=== PATIENT | female | born 1995 | race Caucasian/White ===

== ENCOUNTER 2019-02-05 09:59 | Inpatient (IN) | payer MEDICAID ==
[~2019-02-05] VITALS: Ht 157.5 cm; Wt 73.0 kg
[2019-02-05 10:11] VITALS: Ht 157.5 cm; Wt 73.0 kg
[2019-02-05 10:12] VITALS: BP 114/71; PULSE 90; RESP 18
[2019-02-05] MEDS ORDERED: PREN1TAB13 PO (10:16)
[2019-02-05] MEDS ORDERED: IBUPROFEN 600 MG TAB PO PRN (11:00)
[2019-02-05] MEDS ORDERED: CARBOPROST 250 MCG INJ IM PRN (11:00)
[2019-02-05] MEDS ORDERED: OXYTOCIN 30 UNITS/LR 500 ML IV SCH ×3 (11:00→14:30)
[2019-02-05] MEDS ORDERED: LIDOCAINE 1% (MPF) 30 ML INJ INJ PRN (11:00)
[2019-02-05] MEDS ORDERED: BUTORPHANOL 1 MG INJ IV PRN (11:00)
[2019-02-05] MEDS ORDERED: MISOPROSTOL 200 MCG TAB PR PRN (11:00)
[2019-02-05] MEDS ORDERED: BUTORPHANOL 2 MG INJ IV PRN (11:00)
[2019-02-05] MEDS ORDERED: METHYLERGONOVINE 0.2 MG INJ IM PRN (11:00)
[2019-02-05] MEDS ORDERED: OXYTOCIN 30 UNITS/LR 500 ML IV PRN (11:00)
[2019-02-05] MEDS: LACTATED RINGER'S 1,000 ML IV SCH ×2 (11:49→15:39)
--- NOTE | 2019-02-05 14:21 | HP ---
Date/Time of Note Date/Time of Note DATE: 02/05/19 TIME: 14:19 OB - History Hx of Present Chief Complaint: contraction Estimated Due Date: Feb 06, 2019 : 1 Para: 0 Spontaneous : 0 Therapeutic : 0 Care: Good Care Ultrasounds: Normal mid trimester US Obstetrical Complications: None Medical Complications: None Past Family/Social History * Past Medical, Surgical, Family and Obstetric Histories reviewed from chart. GBS Status: Negative OB Admission Exam Vital Signs Vital Signs Vital Signs Date Temp Pulse Resp B/P (MAP) Pulse Ox O2 O2 Flow FiO2 Time Delivery Rate 02/05/19 98.4 90 18 114/71 Room Air 10:12 (85) Physical Exam HEENT: WNL Heart: Rhythm Normal Lungs: Clear, Equal Abdomen: WNL Extremities: Normal Reflexes: Normal Cervical Dilatation: 2cm Effacement: 75% Station: -2 Membranes: Intact Heart Rate: 120's Accelerations: Accelerations Present Decelerations: No Decelerations Varibility: Moderate Last 72 hours Lab Results CBC & BMP 02/05/19 11:45 OB Assessment/Plan Reason for admission: other Other Assessment: Early labor Plan: Other Induction Method: per Pitocin Protocol Other plan: Augment labor JALYN MOSQUERA MD Feb 05, 2019 14:21
--- NOTE | 2019-02-06 01:25 | PREAC ---
Date/Time of Note Date/Time of Note DATE: 02/06/19 TIME: : Anesthesia Eval and Record Evaluation Time Pre-Procedure Interview DATE: 02/06/19 TIME: : Age 23 Sex female NPO: 8 hrs Preoperative diagnosis labpr pain Planned procedure epidural Past Medical History Past Medical History: None Surgery & Anesthesia Issues No known issue Meds Anticoagulation: Yes Beta Rebeca within 24 hr: Yes Reason Beta Rebeca not given: Pt. not on B-Rebeca Reported Medications Pnv95/Ferrous Fumarate/FA ( Vitamins Tablet) 1 Each Tablet, 1 EACH PO, TAB 02/05/19 Current Medications Lactated Ringer's 1,000 ml @ 125 mls/hr Q8H IV Last administered on 02/05/19at 15:39; Admin Dose 125 MLS/HR; Start 02/05/19 at 10:59 Butorphanol Tartrate (Stadol) 1 mg Q2H PRN IV .PAIN; Start 02/05/19 at 11:00 Butorphanol Tartrate (Stadol) 2 mg Q2H PRN IV .PAIN; Start 02/05/19 at 11:00 Lidocaine (Xylocaine 1% (Mpf)) 30 ml ONCE PRN INJ .EPISIOTOMY; Start 02/05/19 at 11:00 Oxytocin/Lactated Ringer's 500 ml @ 500 mls/hr ONCE POST IV ; Start 02/05/19 at 11:00 Oxytocin/Lactated Ringer's 500 ml @ 125 mls/hr POST IV ; Start 02/05/19 at 11:00 Ibuprofen (Motrin) 600 mg ONCE PRN PO .PAIN 1-5; Start 02/05/19 at 11:00 Oxytocin/Lactated Ringer's 500 ml @ 0 mls/hr ONCE PRN IV .VAGINAL BLEEDING; Start 02/05/19 at 11:00 Methylergonovine Maleate (Methergine) 0.2 mg ONCE PRN IM .VAGINAL BLEEDING; Start 02/05/19 at 11:00 Carboprost Tromethamine (Hemabate) 250 mcg ONCE PRN IM .VAGINAL BLEEDING; Start 02/05/19 at 11:00 Misoprostol (Cytotec) 1,000 mcg ONCE PRN VT .VAGINAL BLEEDING; Start 02/05/19 at 11:00 Oxytocin/Lactated Ringer's 500 ml @ 0 mls/hr FOR INDUCTION IV Last administered on 02/05/19at 14:40; Admin Dose 1 MLS/HR; Start 02/05/19 at 14:30 Meds reviewed: Yes Allergies Coded Allergies: No Known Allergy (Unverified , 02/05/19) Allergies Reviewed: Yes Labs/Studies Labs Reviewed: Reviewed by anesthesiologist Result Diagram: 02/05/19 1145 Laboratory Tests 02/05/19 11:45 Blood Bank Test 02/05/19 11:45 Antibody Screen NEGATIVE Blood Type O POSITIVE Rh Immune Globulin Candidate NO test: Positive Studies: ECG (n/a), CXR (n/a) Pre-procedure Exam Last vitals Vital Signs Date Temp Pulse Resp B/P (MAP) Pulse Ox O2 O2 Flow FiO2 Time Delivery Rate 02/05/19 98.4 90 18 114/71 Room Air 10:12 (85) Airway: Adequate mouth opening Mallampati: Mallampati I Teeth: Normal Lung: Normal Heart: Normal ASA Physical Status ASA physical status: 2 Emergency: None Planned Anesthetic Neuraxial: Epidural Pre-operative Attestations Prior to commencing anesthesia and surgery, the patient was re-evaluated, there was verification of: *The patient's identity *The results of appropriate recent lab work and preoperative vital signs *The above evaluation not changing prior to induction *Anesthetic plan, risk benefits, alternative and complications discussed with patient/family; questions answered; patient/family understands, accepts and wishes to proceed. YAHAIRA WHALEN MD Feb 06, 2019 01:25
[2019-02-06] MEDS ORDERED: FENTAnyl 2MCG/ML-ROPIV 0.2% 100 ML BAG EPI SCH (01:30)
[2019-02-06] MEDS ORDERED: NALOXONE (0.4 MG/ML) INJ IV PRN (01:30)
[2019-02-06] MEDS ORDERED: FENTAnyl 2MCG/ML-ROPIV 0.2% 100 ML ONE (01:44)
[2019-02-06] MEDS: LACTATED RINGER'S 1,000 ML IV SCH ×2 (02:59→05:10)
--- NOTE | 2019-02-06 09:13 | PAC ---
Date/Time of Note Date/Time of Note DATE: 02/06/19 TIME: 09:13 Post-Anesthesia Notes Post-Anesthesia Note Last documented vital signs Vital Signs Date Temp Pulse Resp B/P (MAP) Pulse Ox O2 O2 Flow FiO2 Time Delivery Rate 02/05/19 98.4 90 18 114/71 100% Room Air 10:12 (85) Activity: WNL Respiratory function: WNL Cardiovascular function: WNL Mental status: Baseline Pain reasonably controlled: Yes Hydration appropriate: Yes Nausea/Vomiting absent: Yes YAHAIRA WHALEN MD Feb 06, 2019 09:13
--- NOTE | 2019-02-06 10:41 | LDN ---
Date/Time of Note Date/Time of Note DATE: 02/06/19 TIME: 10:35 Delivery Summary Weeks of Gestation 40 weeks Placenta Delivered: Spontaneously Meconium: Light Episiotomy: No Laceration repair: Fiuest degree perineal and vaginal laceration repaired with 3-0 Vicryl. Anesthesia type: Epidural Estimated blood loss: 400 Sponge & Needle done & correct: Yes All needle counts correct: Yes Any foreign bodies felt in the: No Infant Delivery Information Sex Infant Sex: female Apgars 1 Minute: 9 5 Minute: 9 Suctioning Nose & mouth suctioned at zoraida: No Delee suction performed: No Umbilical Cord Umbilical cord with: 3 Vessels Cord presentations: no nuchal cord Cord Blood was obtained: Yes Mother & Baby Disposition Disposition Mom & Baby to Maternity; Good: Yes JALYN MOSQUERA MD Feb 06, 2019 10:41
[2019-02-06 12:00] VITALS: BP 120/75; PULSE 87; RESP 18
[2019-02-06] MEDS: LACTATED RINGER'S 1,000 ML IV* SCH ×2 (12:01→14:28)
[2019-02-06] MEDS ORDERED: OXYTOCIN 30 UNITS/LR 500 ML IV PRN (12:30)
[2019-02-06] MEDS ORDERED: MISOPROSTOL 200 MCG TAB PR PRN (12:30)
[2019-02-06] MEDS ORDERED: CARBOPROST 250 MCG INJ IM PRN (12:30)
[2019-02-06] MEDS ORDERED: HYDROCODONE/APAP (5/325) TAB PO PRN (12:30)
[2019-02-06] MEDS ORDERED: DIBUCAINE 1% 30 GM OINT TOP PRN (12:30)
[2019-02-06] MEDS ORDERED: BENZOCAINE 20% 56 ML SPRAY TOP PRN (12:30)
[2019-02-06] MEDS ORDERED: METHYLERGONOVINE 0.2 MG INJ IM PRN (12:30)
[2019-02-06] MEDS ORDERED: WITCH HAZEL/GLYCERIN PAD PR PRN (12:30)
[2019-02-06] MEDS ORDERED: ACETAMINOPHEN 325 MG TAB PO PRN (12:30)
[2019-02-06] MEDS: IBUPROFEN 600 MG TAB PO SCH ×3 (12:30→23:56)
--- NOTE | 2019-02-06 15:08 | NSTRPT ---
NST Information Datetime Report Generated by CPN: 02/06/2019 15:08 Datetime: 02/02/2019 10:00 NST Information EGA: 39.3 Test Number: 7 Time on Monitor: 02/02/2019 10:43 Time off Monitor: 02/02/2019 11:17 NST Duration (Min): 34 Reason for NST: Low GIBSON Test and Monitor Explained: Monitor Explained; Test Explained; Verbalized Understanding Pulse: 81 SBP: 110 DBP: 60 Test Evaluation NST Interventions: None Patient States Movement: Present Contraction Frequency: IRREGULAR FHR Baseline : 145 Variability: Moderate 6-25bpm Accelerations: 15X15 Decelerations: None FHR Category: Category I NST Results: Reactive Comments: to us-EDMUNDO 15.4. CEPHALIC Electronically Signed By E-Signature: with User ID: [id number] Datetime: 01/30/2019 10:34 NST Information EGA: 39.0 NST Duration (Min): 28 Datetime: 01/26/2019 10:05 NST Information EGA: 38.3 NST Duration (Min): 22 Datetime: 01/23/2019 10:20 NST Information EGA: 38.0 NST Duration (Min): 26 Datetime: 01/18/2019 10:00 NST Information EGA: 37.2 NST Duration (Min): 46 Datetime: 01/12/2019 10:29 NST Information EGA: 36.3 NST Duration (Min): 55 Datetime: 01/09/2019 09:54 NST Information EGA: 36.0 NST Duration (Min): 26 Datetime: 01/05/2019 10:45 NST Duration (Min): 32
[2019-02-06 16:00] VITALS: BP 112/55; PULSE 96; RESP 16
[2019-02-06 19:50] VITALS: BP 102/58; RESP 18
[2019-02-06] MEDS: SENNA/DOCUSATE NA (8.6MG/50MG) TAB PO SCH (21:04)
[2019-02-07 03:40] VITALS: BP 99/56; PULSE 77; RESP 18
[2019-02-07] MEDS: IBUPROFEN 600 MG TAB PO SCH ×3 (05:32→17:19)
[2019-02-07 07:40] VITALS: BP 86/47; PULSE 80; RESP 16
[2019-02-07] MEDS: SENNA/DOCUSATE NA (8.6MG/50MG) TAB PO SCH ×2 (09:10→21:00)
[2019-02-07 15:41] VITALS: BP 105/58; PULSE 95; RESP 18
[2019-02-07 19:40] VITALS: BP 117/62; PULSE 68; RESP 18
--- NOTE | 2019-02-07 20:15 | DS ---
Date/Time of Note Date/Time of Note DATE: 02/07/19 TIME: 20:15 Obstetrical Discharge Record Final Diagnosis Final Diagnosis: Term delivered Vaginal Delivery Obstetrical Delivery: Spontaneous Complications Augmentation: Yes Condition on Discharge Physical Assessment Voiding: Yes Bowel Movement: Yes Breast: Soft, non-tender, Filling Fundus: Firm Calf Tenderness: No Patient Condition: Stable JALYN MOSQUERA MD Feb 07, 2019 20:15
[2019-02-08] MEDS: IBUPROFEN 600 MG TAB PO SCH ×2 (00:09→05:52)
[2019-02-08 04:43] VITALS: BP 107/51; PULSE 60; RESP 20
[2019-02-08 07:40] VITALS: BP 100/56; PULSE 84; RESP 17
[2019-02-08] MEDS ORDERED: DIPHTH/TET/ACEL PERTUSS (ADULT) 0.5 ML VIAL IM* ONE (09:00)
[2019-02-08] MEDS: SENNA/DOCUSATE NA (8.6MG/50MG) TAB PO SCH (09:24)
--- NOTE | 2019-02-09 13:07 | DELSUM ---
Delivery Summary A-C Datetime Report Generated by CPN: 02/09/2019 13:07 DELIVERY PERSONNEL Security Installer: Duvo, Hina MATERNAL INFORMATION Delivery Anesthesia: Epidural Medications in Delivery: pitocin 30 units Delivery QBL (ml): 415 Placenta Cultured: No Maternal Complications: None LABOR SUMMARY EDC: 02/06/2019 00:00 No. Babies in Womb: 1 Attempted: No Labor Anesthesia: Epidural LABOR INFORMATION Reason for Induction: Not Applicable Onset of Labor: 02/05/2019 04:00 Complete Dilatation: 02/06/2019 06:19 Oxytocin: Augmentation Group B Beta Strep: Negative Antibiotics # of Doses: 0 Steroids Given: None Reason Steroids Not Administered: Not Applicable MEMBRANES Membranes Rupture Method: Spontaneous Rupture of Membranes: 02/06/2019 06:19 Length of Rupture (hr): 3.58 Amniotic Fluid Color: Clear Amniotic Fluid Amount: Small Amniotic Fluid Odor: None STAGES OF LABOR Stage 1 hr: 26 Stage 1 min: 19 Stage 2 hr: 3 Stage 2 min: 35 Stage 3 hr: 0 Stage 3 min: 6 Total Time in Labor hr: 30 Total Time in Labor min: 0 VAGINAL DELIVERY Laceration Extension: First Degree Laceration Type: Perineal; Vaginal Laceration Repair: Yes Initial Vag Sponge Count: 10 Final Vag Sponge Count: 20 Initial Vag Sharps Count: 1 Final Vag Sharps Count: 4 Sponge Count Correct: Yes; Vaginal Sweep Performed Sharps Count Correct: Yes BABY A INFORMATION Delivery Date/Time: 02/06/2019 09:54 Method of Delivery: Vaginal Born in Route : No : N/A Forceps: N/A Vacuum Extraction: N/A Shoulder Dystocia : No SHOULDER DYSTOCIA BABY A Infant Delivery Date/Time: 02/06/2019 09:54 PRESENTATION/POSITION BABY A Presentation: Cephalic Cephalic Presentation: Vertex Vertex Position: Left Occipital Anterior Breech Presentation: N/A PLACENTA INFORMATION BABY A Placenta Delivery Time : 02/06/2019 10:00 Placenta Method of Delivery: Spontaneous Placenta Status: Delivered SCORES BABY A Heart Rate 1 min: >100 bpm Resp Effort 1 min: Good Cry Reflex Irritability 1 min: Cough/Sneeze/Pulls Away Muscle Tone 1 min: Active Motion Color 1 min: Body [place], Extremit Blue Resuscitation Effort 1 min: Tactile Stimulation SCORE 1 MIN: 9 Heart Rate 5 min: >100 bpm Resp Effort 5 min: Good Cry Reflex Irritability 5 min: Cough/Sneeze/Pulls Away Muscle Tone 5 min: Active Motion Color 5 min: Body [place], Extremit Blue Resuscitation Effort 5 min: Tactile Stimulation SCORE 5 MIN: 9 INFANT INFORMATION BABY A Gestational Age at Delivery: 40.0 Gestational Status: Full Term- 39- 40.6 Weeks Outcome : Liveborn Condition : Stable Sex: Female IDENTIFICATION/MEDS BABY A ID Band Number: [id number] ID Band Location: Right Leg; Left Arm Sensor Applied: Yes Sensor Number: [id number] Sensor Location : Cord Clamp Vitamin K Given : Not Given Erythromycin Given: Not Given WEIGHT/LENGTH BABY A Infant Birthweight (gm): 3755 Weight (lb): 8 Weight (oz): 4 Length (in): 20.50 Length (cm): 52.07 CORD INFORMATION BABY A No. Cord Vessels: 3 Nuchal Cord : N/A Cord Blood Taken: Yes Infant Suction: Mouth; Nose ASSESSMENT BABY A Complications: Multiple Variable Decels; Meconium Physical Findings at Delivery: Within Normal Limits Infant Respirations: Appears Normal Scratcher/ALS Called : Yes Infant Care By: Erika POE Transferred To: Remains with Mother
== END 2019-02-08 12:12 | disposition home or self-care (01) | DRG 807 ==
LOC: OBT 09:59 → L-D 10:00 → OBT 10:30 → L-D 11:06 → PP1 02-06 11:46
PROVIDERS: ADMIT Obstetrics & Gynecology; ATTEND Obstetrics & Gynecology
PROC: 10E0XZZ Delivery of Products of Conception, External Approach (ICD-10-PCS; principal; 2019-02-06)
PROC: 0HQ9XZZ Repair Perineum Skin, External Approach (ICD-10-PCS; 2019-02-06)
DX: O48.0 Post-term pregnancy (principal); Z37.0 Single live birth; O70.9 Perineal laceration during delivery, unspecified; Z3A.40 40 weeks gestation of pregnancy
CPT/HCPCS: 62319; 76815; 85025; 85610; 85730; 86592; 86850; 86900; 86901; 87340; 99464; G0463; J2590; J3010; J7120